=== PATIENT | female | born 1945 | race Caucasian/White ===

== ENCOUNTER 2016-12-18 07:15 | Emergency (ER) | payer MEDICARE, OTHER ==
[2016-12-18 08:03] LABS: BASOPHIL 0.6 % (0-2); EOSINOPHIL 0.9 % (0-7); HCT 38.7 % (37.0-47.0); HGB 13.5 g/dl (12.5-16.0); LYMPHOCYTE 10.4 % (15-48); MCH 28.8 pg (25.0-31.0); MCHC 34.9 g/dL (32.0-36.0); MCV 82.5 fL (78.0-100.0); MONOCYTE 11.1 % (0-12); PLT 349 K/uL (150-400); RBC 4.69 M/uL (4.20-5.40); RDW 14.4 % (11.5-14.0); WBC 9.1 K/uL (4.0-10.5)
[2016-12-18 08:15] LABS: CREATININE 0.8 mg/dL (0.5-1.0)
[2016-12-18 08:49] LABS: POTASSIUM 3.4 mmol/L (3.5-5.1)
[2016-12-18 09:49] LABS: BILIRUBIN NEGATIVE (NEGATIVE); BLOOD 1+ Ery/uL (NEGATIVE); CLARITY CLEAR (CLEAR); COLOR YELLOW (YELLOW); GLUCOSE (U) NORMAL (NORMAL); KETONE (U) NEGATIVE (NEGATIVE); LEUKOCYTES TRACE Leu/uL (NEGATIVE); NITRITE NEGATIVE (NEGATIVE); PROTEIN NEGATIVE (NEGATIVE); SPECIFIC GRAVITY <=1.005 (1.001-1.030); UROBILINOGEN 0.2 mg/dL (0.2-1.0)
[2016-12-18 09:55] LABS: BACTERIA TRACE; SQUAMOUS EPITHELIAL CELLS RARE; URINARY RBC RARE; URINARY WBC RARE
== END 2016-12-18 10:35 | disposition home or self-care (01) ==
LOC: FER 07:15
PROVIDERS: Emergency Medicine
DX: G43.909 Migraine, unspecified, not intractable, without status migrainosus (principal); R31.9 Hematuria, unspecified; I10 Essential (primary) hypertension; G89.29 Other chronic pain; R10.9 Unspecified abdominal pain; Z88.0 Allergy status to penicillin; Z88.5 Allergy status to narcotic agent; Z79.899 Other long term (current) drug therapy; Z90.49 Acquired absence of other specified parts of digestive tract; R11.2 Nausea with vomiting, unspecified; R42 Dizziness and giddiness
CPT/HCPCS: 36415; 71010; 80048; 81001; 85025; J1100; J1885; J2405

== ENCOUNTER 2021-06-09 10:56 | Emergency (ER) | payer MEDICARE, OTHER ==
[2021-06-09 12:16] LABS: BASOPHIL 0.4 % (0-2); EOSINOPHIL 0.6 % (0-7); HCT 39.2 % (37.0-47.0); HGB 12.5 g/dl (12.5-16.0); LYMPHOCYTE 7.6 % (15-48); MCH 28.5 pg (25.0-31.0); MCHC 31.9 g/dL (32.0-36.0); MCV 89.5 fL (78.0-100.0); MONOCYTE 4.8 % (0-12); MPV 10.2 fL (6.0-9.5); NEUTROPHIL 86.1 % (41-80); NRBC 0; PLT 284 K/uL (150-400); RBC 4.38 M/uL (4.20-5.40); WBC 9.6 K/uL (4.0-10.5)
[2021-06-09 12:37] LABS: BILIRUBIN NEGATIVE (NEGATIVE); BLOOD 1+ Ery/uL (NEGATIVE); CLARITY CLEAR (CLEAR); COLOR YELLOW (YELLOW); GLUCOSE (U) NORMAL (NORMAL); LEUKOCYTES TRACE Leu/uL (NEGATIVE); NITRITE NEGATIVE (NEGATIVE); PROTEIN NEGATIVE (NEGATIVE); UROBILINOGEN 0.2 mg/dL (0.2-1.0); pH 5.5 (5.0-9.0)
[2021-06-09 13:02] LABS: BILIRUBIN - TOTAL 0.8 mg/dL (0.2-1.0); BUN/CREAT RATIO (CALC) 16.7 RATIO; CREATININE 1.02 mg/dL (0.51-0.95); GLOBULIN (CALCULATION) 3.6 g/dL; POTASSIUM 3.9 mmol/L (3.5-5.1); TOTAL PROTEIN 7.6 g/dL (6.4-8.2)
[2021-06-09] MEDS ORDERED: PLAVIX75 MG PO (16:18)
[2021-06-09] MEDS ORDERED: NORCO 5-325 TA1 EACH PO (16:19)
== END 2021-06-09 17:15 | disposition home or self-care (01) ==
LOC: FER 10:56
PROVIDERS: Emergency Medicine
DX: N28.0 Ischemia and infarction of kidney (principal); I10 Essential (primary) hypertension; Z88.0 Allergy status to penicillin; Z88.8 Allergy status to other drugs, medicaments and biological substances
CPT/HCPCS: 36415; 80053; 81001; 85025; 87040; J2270; J2405; Q9967

== ENCOUNTER 2022-02-10 13:56 | Emergency (ER) | payer MEDICARE, OTHER ==
[~2022-02-10 13:56] MED LIST: NORCO 5-325 TA1 EACH PO; PLAVIX75 MG PO
[2022-02-10 17:06] LABS: BASOPHIL 0.6 % (0-2); EOSINOPHIL 1.7 % (0-7); HCT 43.3 % (37.0-47.0); HGB 13.8 g/dl (12.5-16.0); LYMPHOCYTE 13.5 % (15-48); MCH 28.9 pg (25.0-31.0); MCHC 31.9 g/dL (32.0-36.0); MCV 90.8 fL (78.0-100.0); MONOCYTE 7.7 % (0-12); MPV 10.3 fL (6.0-9.5); NEUTROPHIL 76.1 % (41-80); NRBC 0; PLT 246 K/uL (150-400); RBC 4.77 M/uL (4.20-5.40); RDW 14.6 % (11.5-14.0); WBC 9.4 K/uL (4.0-10.5)
[2022-02-10 18:40] LABS: ALBUMIN 3.7 g/dL (3.4-5.0); BILIRUBIN - TOTAL 0.6 mg/dL (0.2-1.0); BUN/CREAT RATIO (CALC) 19.6 RATIO; CREATININE 0.92 mg/dL (0.51-0.95); GLOBULIN (CALCULATION) 3.4 g/dL; POTASSIUM 4.3 mmol/L (3.5-5.1); TOTAL PROTEIN 7.1 g/dL (6.4-8.2)
[2022-02-10 18:44] LABS: BILIRUBIN NEGATIVE (NEGATIVE); BLOOD TRACE-INTACT Ery/uL (NEGATIVE); CLARITY CLEAR (CLEAR); COLOR YELLOW (YELLOW); GLUCOSE (U) NORMAL (NORMAL); LEUKOCYTES NEGATIVE Leu/uL (NEGATIVE); NITRITE NEGATIVE (NEGATIVE); PROTEIN NEGATIVE (NEGATIVE); SPECIFIC GRAVITY <=1.005 (1.001-1.030); UROBILINOGEN 0.2 mg/dL (0.2-1.0)
[2022-02-10 19:05] LABS: CALCIUM OXALATE CRYSTALS TRACE; MUCOUS TRACE
== END 2022-02-10 20:28 | disposition home or self-care (01) ==
LOC: FER 13:56
PROVIDERS: Emergency Medicine
DX: R10.32 Left lower quadrant pain (principal); I10 Essential (primary) hypertension; Z88.2 Allergy status to sulfonamides; Z88.5 Allergy status to narcotic agent; Z28.310 Unvaccinated for COVID-19
CPT/HCPCS: 36415; 80053; 81001; 82150; 83690; 85025; J1885; J2405; J7030

== ENCOUNTER 2022-02-19 22:38 | Day surgery (SDCO) | payer MEDICARE, OTHER ==
[~2022-02-19] VITALS: Ht 165.1 cm; Wt 74.0 kg
[2022-02-19 23:01] LABS: BASOPHIL 0.6 % (0-2); EOSINOPHIL 0.9 % (0-7); HCT 43.9 % (37.0-47.0); HGB 14.5 g/dl (12.5-16.0); LYMPHOCYTE 12.3 % (15-48); MCH 29.4 pg (25.0-31.0); MCV 88.9 fL (78.0-100.0); MONOCYTE 6.4 % (0-12); MPV 10.2 fL (6.0-9.5); NEUTROPHIL 79.4 % (41-80); NRBC 0; PLT 266 K/uL (150-400); RBC 4.94 M/uL (4.20-5.40); RDW 14.1 % (11.5-14.0); WBC 14.1 K/uL (4.0-10.5)
[2022-02-19 23:11] LABS: INR 0.98 (0.9-1.2); PROTHROMBIN TIME 12.7 SECONDS (11.9-13.9); PTT 31.3 SECONDS (24.9-34.6)
[2022-02-19 23:22] LABS: ALBUMIN 3.9 g/dL (3.4-5.0); BILIRUBIN - TOTAL 0.8 mg/dL (0.2-1.0); BUN/CREAT RATIO (CALC) 15.1 RATIO; CREATININE 0.93 mg/dL (0.51-0.95); GLOBULIN (CALCULATION) 3.9 g/dL; POTASSIUM 3.8 mmol/L (3.5-5.1); TOTAL PROTEIN 7.8 g/dL (6.4-8.2)
[2022-02-20 00:22] LABS: BILIRUBIN NEGATIVE (NEGATIVE); BLOOD TRACE-INTACT Ery/uL (NEGATIVE); CLARITY CLEAR (CLEAR); COLOR YELLOW (YELLOW); GLUCOSE (U) NORMAL (NORMAL); LEUKOCYTES NEGATIVE Leu/uL (NEGATIVE); NITRITE NEGATIVE (NEGATIVE); PROTEIN NEGATIVE (NEGATIVE); UROBILINOGEN 0.2 mg/dL (0.2-1.0)
[2022-02-20 00:38] LABS: URINARY RBC RARE; URINARY WBC RARE
[2022-02-20 00:39] LABS: SQUAMOUS EPITHELIAL CELLS RARE
[2022-02-20 00:56] LABS: CORONAVIRUS 2019 SARS-COV-2 NEGATIVE (NEGATIVE); INFLUENZA A NAA NEGATIVE (NEGATIVE)
[2022-02-20] MEDS ORDERED: COZAAR100 MG PO (03:51)
[2022-02-20] MEDS ORDERED: SYNTHROID88 MCG PO (03:51)
[2022-02-20] MEDS ORDERED: SEROQUEL 25MG T25 MG PO (03:52)
[2022-02-20] MEDS ORDERED: FOSAMAX70 MG PO (03:53)
[2022-02-20 06:04] LABS: HCT 40.7 % (37.0-47.0); HGB 13.1 g/dl (12.5-16.0); MCH 29.1 pg (25.0-31.0); MCHC 32.2 g/dL (32.0-36.0); MCV 90.4 fL (78.0-100.0); MPV 10.1 fL (6.0-9.5); RBC 4.5 M/uL (4.20-5.40); RDW 14.2 % (11.5-14.0); WBC 8.5 K/uL (4.0-10.5)
[2022-02-20 06:40] LABS: BUN/CREAT RATIO (CALC) 12.5 RATIO; CREATININE 0.88 mg/dL (0.51-0.95); POTASSIUM 4.2 mmol/L (3.5-5.1)
--- NOTE | 2022-02-20 15:06 | NUR ---
02/20/22 Ms. Stout lives alone. She is independent in the home and community. She does not have any DME. PCP = Dr. Booth. Ms. Stout has 4 children who are minimal support. - No discharge planning needs are anticipated.
--- NOTE | 2022-02-20 23:23 | NUR ---
02/20/22 1317 ANOTHER CALL PLACED TO JOLIE GUTIERREZ REGARDING PATIENT'S HR. PATIENT WAS UP TO USE BATHROOM AND HEARTRATE JUMPED TO 190. ONCE LAYING BACK IN BED, HR CAME DOWN TO 84. PATIENT DENIES ANY SYMPTOMS, NO CHEST PAIN OR PRESSURE OR SOB. BRENDA TO ENTER NEW ORDERS. -JENNIFER CASTILLO
--- NOTE | 2022-02-21 01:35 | NUR ---
JOLIE GUTIERREZ NOTIFIED OF PATIENT'S BP 171/102 AND HR 105. IV LABETOLOL 10 MG AND 200 MP PO AMIODARONE GIVEN. WILL RECHECK BP AND HR AND CONTINUE TO MONITOR.
[2022-02-21 05:33] LABS: HCT 38.7 % (37.0-47.0); HGB 12.8 g/dl (12.5-16.0); MCH 29.7 pg (25.0-31.0); MCHC 33.1 g/dL (32.0-36.0); MCV 89.8 fL (78.0-100.0); RBC 4.31 M/uL (4.20-5.40); RDW 14.2 % (11.5-14.0); WBC 7.8 K/uL (4.0-10.5)
[2022-02-21 05:51] LABS: BUN/CREAT RATIO (CALC) 8.6 RATIO; CREATININE 0.93 mg/dL (0.51-0.95); POTASSIUM 3.1 mmol/L (3.5-5.1)
--- NOTE | 2022-02-22 04:49 | NUR ---
0430 CALLED [facility] AND INFORMED HER THAT THE PTS. BLOOD PRESSURE IS 148/104. NO NEW ORDERS AT THIS TIME. ER,RN
[2022-02-22 05:38] LABS: HCT 41.2 % (37.0-47.0); HGB 13.5 g/dl (12.5-16.0); MCH 29.7 pg (25.0-31.0); MCHC 32.8 g/dL (32.0-36.0); MCV 90.7 fL (78.0-100.0); MPV 10.3 fL (6.0-9.5); RBC 4.54 M/uL (4.20-5.40); RDW 14.4 % (11.5-14.0); WBC 9.6 K/uL (4.0-10.5)
[2022-02-22 06:18] LABS: BUN/CREAT RATIO (CALC) 11.8 RATIO; CREATININE 0.93 mg/dL (0.51-0.95); POTASSIUM 4.3 mmol/L (3.5-5.1)
[2022-02-22] MEDS ORDERED: MAG-OXIDE 400M400 MG PO (07:55)
[2022-02-22] MEDS ORDERED: LOPRESSOR50 MG PO ×2 (07:55→09:21)
[2022-02-22] MEDS ORDERED: ELIQUIS5 MG PO ×2 (07:55→09:21)
[2022-02-22] MEDS ORDERED: MIRALAX17 GM PO ×2 (07:55→09:21)
[2022-02-22] MEDS ORDERED: AMIODARONE HCL200 MG PO ×2 (07:55→09:21)
[2022-02-22] MEDS ORDERED: HCTZ12.5 MG PO ×2 (07:55→09:21)
[2022-02-22] MEDS ORDERED: SYNTHROID100 MCG PO ×2 (07:55→09:21)
== END 2022-02-22 10:20 | disposition home or self-care (01) ==
LOC: FER 22:38 → FMS 02-20 02:31 → FTCU 02-20 02:31
PROVIDERS: Emergency Medicine; Family Medicine; Nurse Practitioner Acute Care; ADMIT Internal Medicine
DX: I48.91 Unspecified atrial fibrillation (principal); I12.9 Hypertensive chronic kidney disease with stage 1 through stage 4 chronic kidney disease, or unspecified chronic kidney disease; N18.30 Chronic kidney disease, stage 3 unspecified; R73.03 Prediabetes; E03.8 Other specified hypothyroidism; K59.01 Slow transit constipation; E87.6 Hypokalemia; R73.9 Hyperglycemia, unspecified; R11.2 Nausea with vomiting, unspecified; R33.9 Retention of urine, unspecified; E87.2 Acidosis; D72.829 Elevated white blood cell count, unspecified; Z20.822 Contact with and (suspected) exposure to COVID-19; Z88.0 Allergy status to penicillin
CPT/HCPCS: 36415; 80048; 80053; 81001; 83036; 83605; 83880; 84439; 84443; 84484; 85025; 85610; 85730; 87040; 93005; 94010; 94762; C9113; G0378; J0692; J0780; J1630; J1940; J2405; J2550; J3475; J7030; U0002

== ENCOUNTER 2022-02-27 16:53 | Emergency (ER) | payer MEDICARE, OTHER ==
[~2022-02-27] VITALS: Ht 165.1 cm; Wt 70.3 kg
[~2022-02-27 16:53] MED LIST changes: +AMIODARONE HCL200 MG PO; +COZAAR100 MG PO; +ELIQUIS5 MG PO; +FOSAMAX70 MG PO; +HCTZ12.5 MG PO; +LOPRESSOR50 MG PO; +MAG-OXIDE 400M400 MG PO; +MIRALAX17 GM PO; +SEROQUEL 25MG T25 MG PO; +SYNTHROID100 MCG PO; +SYNTHROID88 MCG PO
[2022-02-27 17:38] LABS: BASOPHIL 0.6 % (0-2); EOSINOPHIL 0.6 % (0-7); HGB 14.6 g/dl (12.5-16.0); LYMPHOCYTE 16.2 % (15-48); MCH 29.6 pg (25.0-31.0); MCHC 33.2 g/dL (32.0-36.0); MCV 89.1 fL (78.0-100.0); MONOCYTE 8.1 % (0-12); MPV 9.9 fL (6.0-9.5); NEUTROPHIL 74.2 % (41-80); NRBC 0; PLT 295 K/uL (150-400); RBC 4.94 M/uL (4.20-5.40); RDW 13.5 % (11.5-14.0); WBC 7.1 K/uL (4.0-10.5)
[2022-02-27 18:02] LABS: ALBUMIN 3.8 g/dL (3.4-5.0); BUN/CREAT RATIO (CALC) 12.9 RATIO; CREATININE 1.16 mg/dL (0.51-0.95); GLOBULIN (CALCULATION) 3.3 g/dL; POTASSIUM 3.8 mmol/L (3.5-5.1); TOTAL PROTEIN 7.1 g/dL (6.4-8.2)
[2022-02-27] MEDS ORDERED: CARAFATE1 GM PO (18:59)
== END 2022-02-27 19:40 | disposition home or self-care (01) ==
LOC: FER 16:53
PROVIDERS: Emergency Medicine
DX: K29.70 Gastritis, unspecified, without bleeding (principal); I10 Essential (primary) hypertension; Z28.310 Unvaccinated for COVID-19; Z88.0 Allergy status to penicillin; Z88.5 Allergy status to narcotic agent
CPT/HCPCS: 36415; 80053; 82150; 83690; 85025; C9113; J1100; J1885; J2405; J7030

== ENCOUNTER 2022-03-28 02:04 | Emergency (ER) | payer MEDICARE, OTHER ==
[~2022-03-28 02:04] MED LIST changes: +CARAFATE1 GM PO
[2022-03-28 02:40] LABS: ALBUMIN 3.7 g/dL (3.4-5.0); BILIRUBIN - TOTAL 0.5 mg/dL (0.2-1.0); BUN/CREAT RATIO (CALC) 10.4 RATIO; CREATININE 0.96 mg/dL (0.51-0.95); GLOBULIN (CALCULATION) 3.5 g/dL; POTASSIUM 3.4 mmol/L (3.5-5.1); TOTAL PROTEIN 7.2 g/dL (6.4-8.2)
[2022-03-28 02:41] LABS: BASOPHIL 0.7 % (0-2); EOSINOPHIL 2.2 % (0-7); HGB 13.7 g/dl (12.5-16.0); LYMPHOCYTE 10.4 % (15-48); MCH 29.7 pg (25.0-31.0); MCHC 32.6 g/dL (32.0-36.0); MCV 90.9 fL (78.0-100.0); MONOCYTE 6.5 % (0-12); MPV 9.3 fL (6.0-9.5); NEUTROPHIL 79.5 % (41-80); NRBC 0; PLT 291 K/uL (150-400); RBC 4.62 M/uL (4.20-5.40); RDW 14.2 % (11.5-14.0); WBC 12.3 K/uL (4.0-10.5)
[2022-03-28 02:57] LABS: CORONAVIRUS 2019 SARS-COV-2 NEGATIVE (NEGATIVE); INFLUENZA A NAA NEGATIVE (NEGATIVE)
[2022-03-28 05:07] LABS: BILIRUBIN NEGATIVE (NEGATIVE); BLOOD TRACE-INTACT Ery/uL (NEGATIVE); CLARITY CLEAR (CLEAR); COLOR YELLOW (YELLOW); GLUCOSE (U) NORMAL (NORMAL); LEUKOCYTES NEGATIVE Leu/uL (NEGATIVE); NITRITE NEGATIVE (NEGATIVE); PROTEIN NEGATIVE (NEGATIVE); SPECIFIC GRAVITY <=1.005 (1.001-1.030); UROBILINOGEN 0.2 mg/dL (0.2-1.0)
[2022-03-28 05:40] LABS: SQUAMOUS EPITHELIAL CELLS RARE; TRANSITIONAL EPITHELIAL CELLS RARE; URINARY RBC RARE
[2022-03-28] MEDS ORDERED: NORCO 5-325 TA1 EACH PO (06:59)
[2022-03-28] MEDS ORDERED: ONDANSETRON ODT4 MG PO (06:59)
[2022-03-28] MEDS ORDERED: COLACE100 M1 PO (06:59)
== END 2022-03-28 07:55 | disposition home or self-care (01) ==
LOC: FER 02:04
PROVIDERS: Emergency Medicine
DX: K59.00 Constipation, unspecified (principal); I48.91 Unspecified atrial fibrillation; I10 Essential (primary) hypertension; Z20.822 Contact with and (suspected) exposure to COVID-19; Z90.49 Acquired absence of other specified parts of digestive tract; Z88.5 Allergy status to narcotic agent; Z88.0 Allergy status to penicillin
CPT/HCPCS: 36415; 74018; 80053; 81001; 82150; 83690; 85025; J2270; J2405; J2550; J7030; U0002